=== PATIENT | male | born 1940 | race Caucasian/White ===

== ENCOUNTER 2017-06-11 12:21 | Emergency (ER) | payer MEDICARE ==
[~2017-06-11] VITALS: Ht 182.9 cm; Wt 95.0 kg
[~2017-06-11 12:21] MED LIST: CYAN1000P IM; DICL1GEL TOP; DOXY100T PO; GLIM1TAB PO; LEVO.125 PO; LEXA10TA PO; PENT500C2 PO; POTA-243 PO; PRED5 PO; PROT40TA PO; ROSU10 PO; STAR120T PO; TOPR25TA2 PO; WARF-60 PO
[2017-06-11 12:22] VITALS: BP 144/67; PULSE 109; RESP 18; TEMP 98.8; O2SAT 94
[2017-06-11] MEDS ORDERED: SODIUM CHLOR 0.9% 1000 ML INJ 1,000 ML IV SCH (12:44)
[2017-06-11] MEDS ORDERED: MORPHINE SULFATE 4 MG/ML INJ IV PUSH ONE (12:45)
[2017-06-11] MEDS ORDERED: ONDANSETRON HCL 4 MG/2 ML VIAL IVP ONE (12:45)
[2017-06-11] MEDS ORDERED: LIDOCAINE HCL 1% 30 ML VIAL INFIL ONE (12:45)
[2017-06-11] MEDS ORDERED: SODIUM CHLORIDE 0.9% FLUSH 10 ML FLUSH IV FLUSH PRN (12:45)
[2017-06-11] MEDS ORDERED: LIDOCAINE HCL 1% 20 ML VIAL INFIL ONE (13:00)
[2017-06-11] MEDS ORDERED: LIDOCAINE HCL 1% PF 30 ML VIAL INFIL ONE (13:00)
[2017-06-11 13:10] VITALS: BP 148/70; PULSE 100; RESP 16; O2SAT 91
[2017-06-11 13:24] VITALS: BP 141/70; PULSE 94; RESP 16; TEMP 100.6; O2SAT 96
[2017-06-11 13:41] LABS: AUTOMATED NEUTROPHIL # 9.5 TH/MM3 (1.8-7.7); BASOPHIL % 0.2 % (0.0-2.0); EOSINOPHIL # 0.1 TH/MM3 (0-0.4); HEMATOCRIT 32.2 % (39.0-51.0); HEMOGLOBIN 10.6 GM/DL (13.0-17.0); LYMPH % 5.4 % (9.0-44.0); LYMPHOCYTE # 0.6 TH/MM3 (1.0-4.8); MEAN CELL VOLUME 84.1 FL (80.0-100.0); MEAN CORPUSCULAR HEMOGLOBIN 27.9 PG (27.0-34.0); MEAN CORPUSCULAR HGB CONC 33.1 % (32.0-36.0); MEAN PLATELET VOLUME 8.6 FL (7.0-11.0); MONO % 6.9 % (0.0-8.0); MONOCYTE # 0.8 TH/MM3 (0-0.9); NEUT % 86.5 % (16.0-70.0); PLATELET COUNT 222 TH/MM3 (150-450); RED BLOOD COUNT 3.82 MIL/MM3 (4.50-5.90); RED CELL DISTRIBUTION WIDTH 14.1 % (11.6-17.2)
[2017-06-11 13:43] LABS: BICARBONATE 25.5 MEQ/L (21.0-32.0); INTERNATIONAL NORMALIZED RATIO 2.5 RATIO; PROTHROMBIN TIME - PATIENT 25.6 SEC (9.8-11.6)
[2017-06-11] MEDS ORDERED: AMPICILLIN-SULBACTAM INJ 3 GM in SODIUM CHLORIDE 0.9% INJ 100 ML IV ONE (14:00)
[2017-06-11] MEDS ORDERED: COUM6TAB PO (14:06)
[2017-06-11] MEDS ORDERED: LEXA20TA PO (14:06)
[2017-06-11] MEDS ORDERED: ROSU10 PO (14:06)
[2017-06-11] MEDS ORDERED: GLIM2TAB PO (14:06)
[2017-06-11] MEDS ORDERED: KLOR20PO PO (14:06)
[2017-06-11] MEDS ORDERED: LEVO.125 PO (14:06)
[2017-06-11] MEDS ORDERED: PANT40TA3 PO (14:06)
[2017-06-11] MEDS ORDERED: NATE120T PO (14:06)
[2017-06-11] MEDS ORDERED: COZA25TA PO (14:06)
[2017-06-11] MEDS ORDERED: PRED5TAB PO (14:06)
[2017-06-11] MEDS ORDERED: PENT500C2 PO (14:06)
[2017-06-11 14:17] VITALS: BP 133/74; PULSE 102; RESP 16; O2SAT 98
--- NOTE | 2017-06-11 14:52 | PD ---
HPI . Weakness Chief Complaint: Fall Time Seen by Provider: 12:39 Travel History International Travel<30 days: No Contact w/Intl Traveler<30days: No Traveled to known affect area: No History of Present Illness HPI This patient comes in with a chief complaint of progressive weakness. This is been ongoing for several months. His states that he has fallen twice this past week. He is been no associated injury. In addition, she states that he has had hesitancy of urination, possible blood in his urine and foul smelling urine. Lastly, he has an abscess in his perineal area. His symptoms have been continuous and progressive. There have been no noted modifying factors. Symptoms are moderate. PFSH Past Medical History Hx Anticoagulant Therapy: Yes (COUMADIN) Autoimmune Disease: Yes (CROHNS) Anxiety: No Depression: No Heart Rhythm Problems: Yes Cardiac Catheterization: Yes High Cholesterol: Yes Diabetes: Yes Patient Takes Glucophage: No Diminished Hearing: Yes Deep Vein Thrombosis: Yes (RLE) GERD: Yes Gout: Yes Hypertension: Yes Kidney Stones: Yes Medical other: Yes (GYNECOMASTIA - RIGHT) Neurologic: No Psychiatric: No Immunizations Current: No Thyroid Disease: Yes Tetanus Vaccination: > 5 Years Influenza Vaccination: Yes PNEUMOCCOCAL Vaccine (Year): 1 Past Surgical History Abdominal Surgery: Yes (BOWEL RESECTION/VENTRAL HERNIA REPAIR/DUODENAL STRICTUROPLASTY (FAILED)) Appendectomy: Yes Cardiac Surgery: Yes (STENT X1 12/2008) Coronary Stent: Yes Other Surgery: Yes (MESH CAGE IN BACK-5 HERNIATED DISCS) Social History Alcohol Use: Yes (OCC) Tobacco Use: No (QUIT 01/23) Substance Use: No Allergies-Medications (Allergen,Severity, Reaction): Coded Allergies: Iodinated Contrast- Oral and IV Dye (Unverified Adverse Reaction, Severe, "PASSED OUT", 06/11/17) levofloxacin (Verified Adverse Reaction, Intermediate, Diarrhea, 06/11/17) Reported Meds & Prescriptions Reported Meds & Active Scripts Active Reported Cozaar (Losartan Potassium) 25 Mg Tab 25 Mg PO DAILY Pantoprazole (Pantoprazole Sodium) 40 Mg Tab 40 Mg PO BID Lexapro (Escitalopram Oxalate) 20 Mg Tab 20 Mg PO DAILY Prednisone 5 Mg Tab 5 Mg PO DAILY Coumadin (Warfarin) 6 Mg Tab 6 Mg PO DAILY Synthroid (Levothyroxine Sodium) 125 Mcg Tab 125 Mcg PO DAILY Klor-Con Powder (Potassium Chloride) 20 Meq Powderpack 20 Meq PO DAILY Crestor (Rosuvastatin Calcium) 10 Mg Tab 10 Mg PO DAILY Pentasa (Mesalamine) 500 Mg Caper 500 Mg PO BID Glimepiride 2 Mg Tab 2 Mg PO DAILY Take with breakfast or first main meal Nateglinide 120 Mg Tab 120 Mg PO TID Review of Systems Except as stated in HPI: all other systems reviewed are Neg General / Constitutional: No: Fever, Chills Gastrointestinal: No: Nausea, Vomiting, Diarrhea Genitourinary: Positive: Hematuria, Hesitancy Skin: Positive Other (SKIN: There is an indurated area in the [-] which measures about [-] cm in diameter. It is fluctuant but there is no pointing or drainage. There is a zone of inflammation around it but no lymphangitis.) Neurologic: Positive: Weakness Physical Exam Narrative GENERAL: Awake and alert and in no acute distress. SKIN: warm/dry. HEAD: Normocephalic. Atraumatic. EYES: Pupils equal and round. No scleral icterus. No injection or drainage. ENT: No nasal bleeding or discharge. Mucous membranes pink and moist. NECK: Trachea midline. Full range of motion without pain.. CARDIOVASCULAR: Regular rate and rhythm. RESPIRATORY: No accessory muscle use. Clear to auscultation. Breath sounds equal bilaterally. GASTROINTESTINAL: Abdomen soft. Nontender. Bowel sounds present. Nondistended. : He has an abscess in the perineum between the anus and the scrotal sac on the right. MUSCULOSKELETAL: No obvious deformities. NEUROLOGICAL: Awake and alert. No obvious cranial nerve deficits. Motor grossly within normal limits. Normal speech. PSYCHIATRIC: Appropriate mood and affect; insight and judgment normal. Data Data Last Documented VS Vital Signs Date Time Temp Pulse Resp B/P (MAP) Pulse Ox O2 Delivery O2 Flow Rate FiO2 06/11/17 16:20 99.1 76 16 114/50 (71) 98 Nasal Cannula 2.00 Orders Orders Basic Metabolic Panel (Bmp) (06/11/17 12:44) Complete Blood Count With Diff (06/11/17 12:44) Lactic Acid (06/11/17 12:44) Urinalysis - C+S If Indicated (06/11/17 12:44) Iv Access Insert/Monitor (06/11/17 12:44) Morphine Inj (Morphine Inj) (06/11/17 12:45) Ondansetron Inj (Zofran Inj) (06/11/17 12:45) Sodium Chlor 0.9% 1000 Ml Inj (Ns 1000 M (06/11/17 12:44) Sodium Chloride 0.9% Flush (Ns Flush) (06/11/17 12:45) Lidocaine 1% Inj (Xylocaine 1% Inj) (06/11/17 12:45) Lidocaine Pf 1% Inj (Xylocaine-Mpf 1% In (06/11/17 13:00) Prothrombin Time / Inr (Pt) (06/11/17 12:55) Lidocaine 1% Inj (Xylocaine 1% Inj) (06/11/17 13:00) Ampicillin-Sulbactam Inj (Unasyn Inj) (06/11/17 14:00) Wound Culture And Gram Stain (06/11/17 14:28) Sodium Chlor 0.9% 1000 Ml Inj (Ns 1000 M (06/11/17 15:00) Sodium Chlor 0.9% 1000 Ml Inj (Ns 1000 M (06/11/17 16:00) Labs Laboratory Tests Test 06/11/17 12:05 06/11/17 16:00 White Blood Count 11.0 TH/MM3 Red Blood Count 3.82 MIL/MM3 Hemoglobin 10.6 GM/DL Hematocrit 32.2 % Mean Corpuscular Volume 84.1 FL Mean Corpuscular Hemoglobin 27.9 PG Mean Corpuscular Hemoglobin Concent 33.1 % Red Cell Distribution Width 14.1 % Platelet Count 222 TH/MM3 Mean Platelet Volume 8.6 FL Neutrophils (%) (Auto) 86.5 % Lymphocytes (%) (Auto) 5.4 % Monocytes (%) (Auto) 6.9 % Eosinophils (%) (Auto) 1.0 % Basophils (%) (Auto) 0.2 % Neutrophils # (Auto) 9.5 TH/MM3 Lymphocytes # (Auto) 0.6 TH/MM3 Monocytes # (Auto) 0.8 TH/MM3 Eosinophils # (Auto) 0.1 TH/MM3 Basophils # (Auto) 0.0 TH/MM3 CBC Comment DIFF FINAL Differential Comment Prothrombin Time 25.6 SEC Prothromb Time International Ratio 2.5 RATIO Blood Urea Nitrogen 14 MG/DL Creatinine 1.00 MG/DL Random Glucose 227 MG/DL Calcium Level 8.0 MG/DL Sodium Level 135 MEQ/L Potassium Level 3.5 MEQ/L Chloride Level 99 MEQ/L Carbon Dioxide Level 25.5 MEQ/L Anion Gap 11 MEQ/L Estimat Glomerular Filtration Rate 72 ML/MIN Lactic Acid Level 2.5 mmol/L Urine Collection Type CLEAN CATCH Urine Color YELLOW Urine Turbidity CLEAR Urine pH 5.5 Urine Specific [place] 1.029 Urine Protein 30 mg/dL Urine Glucose (UA) NEG mg/dL Urine Ketones NEG mg/dL Urine Occult Blood TRACE Urine Nitrite NEG Urine Bilirubin NEG Urine Leukocyte Esterase NEG Urine RBC 0-3 /hpf Urine WBC 0-2 /hpf Urine Squamous Epithelial Cells 0-5 /hpf Microscopic Urinalysis Comment CULT NOT INDICATED Urine Collection Time 16:00 [facility] Medical Decision Making Medical Screen Exam Complete: Yes Emergency Medical Condition: Yes Medical Record Reviewed: Yes (medical history is significant for DM, CAD, HTN, HL, CHF, EF, VT) Differential Diagnosis Differential diagnosis of weakness includes but is not limited to infection, CVA , electrolyte disturbance, renal failure, hypoglycemia, UTI, ACS, acute blood loss Narrative Course This patient presents with a chief complaint of progressive weakness over the last several months. He also has an abscess in his perineum and possibly has a urinary tract infection. CBC & BMP Diagram 06/11/17 12:05 Calcium Level 8.0 L He does not meet SIRS criteria. He has had 2 L of fluid and has not yet urinated. I have ordered a third liter. UA neg for infection. This patient is stable for discharge. He will be discharged on Augmentin per the recommendation of up-to-date. He is asked to return here in 2 days for packing removal. Procedures Procedure Narrative INCISION AND DRAINAGE OF ABSCESS: The area was prepped with Betadine. A subcutaneous wheal of 1 % Xylocaine with a total number 5 mL was used to anesthetize the area properly. A number 11 scalpel was used to make a 1 -cm incision across the area of the abscess. The abscess was drained, complex loculations were broken down. Cultures were obtained. Quarter inch iodoform packing was placed in the wound. Sterile dressing applied. Patient advised to have packing removed in two days. Sepsis Criteria SIRS Criteria (2 or more): Heart rate over 90 Diagnosis Primary Impression: Perineal abscess Additional Impression: Weakness Patient Instructions: Abscess Incision and Drainage (DC), General Instructions Med/Other Pt SpecificInfo: Prescription(s) given Scripts Amoxicillin-Clavulanate (Augmentin) 875-125 Mg Tab 1 TAB PO BID for Infection, #10 TAB 0 Refills Prov: Phoebe Lea MD 06/11/17 Disposition: 01 DISCHARGE HOME Condition: Stable Phoebe Lea MD Jun 11, 2017 14:52
[2017-06-11] MEDS ORDERED: SODIUM CHLOR 0.9% 1000 ML INJ 1,000 ML IV ONE ×2 (15:00→16:00)
[2017-06-11 16:20] VITALS: BP 114/50; PULSE 76; RESP 16; TEMP 99.1; O2SAT 98
[2017-06-11 17:07] LABS: BILIRUBIN, URINE NEG (NEG); BLOOD, URINE TRACE (NEG); GLUCOSE,URINE NEG (NEG); KETONE, URINE NEG (NEG); NITRITE,URINE NEG (NEG); PH, URINE 5.5 (5.0-8.5); URINE LEUKOCYTE ESTERASE NEG (NEG)
[2017-06-11 17:16] LABS: RBC, URINE 0-3 /hpf (0-3); SQUAMOUS EPITHELIAL CELL URINE 0-5 /hpf (0-5); URINE COLOR YELLOW (YELLW/STRAW); WBC, URINE 0-2 /hpf (0-5)
[2017-06-11] MEDS ORDERED: AUGM875T3 PO (17:32)
[2017-06-11 18:16] VITALS: BP 133/68; PULSE 88; RESP 16; O2SAT 95
== END 2017-06-11 18:00 | disposition home or self-care (01) ==
LOC: PHED 12:21
DX: L02.215 Cutaneous abscess of perineum (principal); R53.1 Weakness; R39.11 Hesitancy of micturition; E11.9 Type 2 diabetes mellitus without complications; M10.9 Gout, unspecified; I10 Essential (primary) hypertension; K21.9 Gastro-esophageal reflux disease without esophagitis; Z87.19 Personal history of other diseases of the digestive system; Z86.718 Personal history of other venous thrombosis and embolism
CPT/HCPCS: 10061; 80048; 81001; 83605; 85025; 85610; 86403; 87070; 96361; 96365; 96375; 99284; J0295; J2270; J2405; J7030; 87205

== ENCOUNTER 2017-06-13 14:35 | Emergency (ER) | payer MEDICARE ==
[~2017-06-13] VITALS: Ht 182.9 cm; Wt 98.0 kg
[~2017-06-13 14:35] MED LIST changes: +AUGM875T3 PO; +COUM6TAB PO; +COZA25TA PO; -CYAN1000P IM; -DICL1GEL TOP; -DOXY100T PO; -GLIM1TAB PO; +GLIM2TAB PO; +KLOR20PO PO; -LEXA10TA PO; +LEXA20TA PO; +NATE120T PO; +PANT40TA3 PO; -POTA-243 PO; -PRED5 PO; +PRED5TAB PO; -PROT40TA PO; -STAR120T PO; -TOPR25TA2 PO; -WARF-60 PO
[2017-06-13 15:07] VITALS: BP 132/68; PULSE 80; RESP 17; TEMP 97.6; O2SAT 95
--- NOTE | 2017-06-13 16:09 | PD ---
HPI Chief Complaint: Wound/Suture/Staple Re-Check Time Seen by Provider: 15:46 Travel History International Travel<30 days: No Contact w/Intl Traveler<30days: No Traveled to known affect area: No History of Present Illness HPI 77-year-old male that presents to the ED for evaluation of recheck of wound. Patient reports that he was seen here 2 days ago had an abscess drained. Patient had packing in place and has been having drainage from the wound. Per who is taking care of the patient packing might have felt today. His been continued to have wound care as well as drainage from the wound. No other medical issues. Compliant with medications. Here for recheck as they were told to get a recheck in 2 days. PFSH Past Medical History Hx Anticoagulant Therapy: Yes Autoimmune Disease: Yes (CROHNS) Anxiety: No Depression: No Heart Rhythm Problems: Yes Cardiac Catheterization: Yes Cardiovascular Problems: Yes High Cholesterol: Yes Diabetes: Yes Patient Takes Glucophage: No Diminished Hearing: Yes Deep Vein Thrombosis: Yes (RLE) GERD: Yes Gout: Yes Hypertension: Yes Kidney Stones: Yes Neurologic: No Psychiatric: No Immunizations Current: No Thyroid Disease: Yes PNEUMOCCOCAL Vaccine (Year): 1 Past Surgical History Abdominal Surgery: Yes (BOWEL RESECTION/VENTRAL HERNIA REPAIR/DUODENAL STRICTUROPLASTY (FAILED)) Appendectomy: Yes Cardiac Surgery: Yes (STENT X1 12/2008) Coronary Stent: Yes Other Surgery: Yes (MESH CAGE IN BACK-5 HERNIATED DISCS) Social History Alcohol Use: Yes (OCC) Tobacco Use: No (QUIT 01/23) Substance Use: No Allergies-Medications (Allergen,Severity, Reaction): Coded Allergies: Iodinated Contrast- Oral and IV Dye (Unverified Adverse Reaction, Severe, "PASSED OUT", 06/13/17) levofloxacin (Verified Adverse Reaction, Intermediate, Diarrhea, 06/13/17) Reported Meds & Prescriptions Reported Meds & Active Scripts Active Augmentin (Amoxicillin-Clavulanate) 875-125 Mg Tab 1 Tab PO BID Reported Cozaar (Losartan Potassium) 25 Mg Tab 25 Mg PO DAILY Pantoprazole (Pantoprazole Sodium) 40 Mg Tab 40 Mg PO BID Lexapro (Escitalopram Oxalate) 20 Mg Tab 20 Mg PO DAILY Prednisone 5 Mg Tab 5 Mg PO DAILY Coumadin (Warfarin) 6 Mg Tab 6 Mg PO DAILY Synthroid (Levothyroxine Sodium) 125 Mcg Tab 125 Mcg PO DAILY Klor-Con Powder (Potassium Chloride) 20 Meq Powderpack 20 Meq PO DAILY Crestor (Rosuvastatin Calcium) 10 Mg Tab 10 Mg PO DAILY Pentasa (Mesalamine) 500 Mg Caper 500 Mg PO BID Glimepiride 2 Mg Tab 2 Mg PO DAILY Take with breakfast or first main meal Nateglinide 120 Mg Tab 120 Mg PO TID Review of Systems Except as stated in HPI: all other systems reviewed are Neg Physical Exam Narrative GENERAL: SKIN: Warm and dry. Patient has a draining abscess on his right groin. Seen with female nurse present. Patient does have drainage coming from the wound. Packing already appears to have fallen. Wound still draining. No new abscess noted. HEAD: Atraumatic. Normocephalic. EYES: Pupils equal and round. No scleral icterus. No injection or drainage. ENT: No nasal bleeding or discharge. Mucous membranes pink and moist. NECK: Trachea midline. No JVD. CARDIOVASCULAR: Regular rate and rhythm. RESPIRATORY: No accessory muscle use. Clear to auscultation. Breath sounds equal bilaterally. GASTROINTESTINAL: Abdomen soft, non-tender, nondistended. Hepatic and splenic margins not palpable. MUSCULOSKELETAL: Extremities without clubbing, cyanosis, or edema. No obvious deformities. NEUROLOGICAL: Awake and alert. No obvious cranial nerve deficits. Motor grossly within normal limits. Five out of 5 muscle strength in the arms and legs. Normal speech. PSYCHIATRIC: Appropriate mood and affect; insight and judgment normal. Data Data Last Documented VS Vital Signs Date Time Temp Pulse Resp B/P (MAP) Pulse Ox O2 Delivery O2 Flow Rate FiO2 06/13/17 15:07 97.6 80 17 132/68 (89) 95 Orders Orders Ed Discharge Order (06/13/17 16:05) MDM Medical Decision Making Medical Screen Exam Complete: Yes Emergency Medical Condition: Yes Medical Record Reviewed: Yes Differential Diagnosis Draining abscess versus wound check versus wound recheck Narrative Course 77-year-old male that presents to the ED for evaluation of draining abscess. Patient was properly examined and was found to have signs and symptoms consistent with draining abscess. No sign of acute medical distress. Packing already removed on its own. At this time I recommend wound care and continue taking antibiotic. I did review the medical records and patient did not improve any organism alert and normal jagjit. At this time likely this will heal by secondary intention after the pus comes out. Patient understands that if anything worsens she is to come back. Follow with PCP. See ED worsening symptoms. Diagnosis Primary Impression: Abscess Patient Instructions: General Instructions Additional Instructions: Follow-up with PCP. See ED worsening symptoms. Continue taking medications as prescribed by your doctor. Med/Other Pt SpecificInfo: No Change to Meds Disposition: 01 DISCHARGE HOME Condition: Stable Prasanth Valdes Jun 13, 2017 16:09
== END 2017-06-13 16:21 | disposition home or self-care (01) ==
LOC: PHEFT 14:35
DX: Z48.00 Encounter for change or removal of nonsurgical wound dressing (principal)
CPT/HCPCS: 99281

== ENCOUNTER 2017-06-18 11:00 | Emergency (ER) | payer MEDICARE ==
[~2017-06-18] VITALS: Ht 182.9 cm; Wt 94.2 kg
[2017-06-18 11:17] VITALS: BP 135/65; PULSE 99; RESP 16; TEMP 98.5; O2SAT 96
[2017-06-18 11:43] LABS: AUTOMATED NEUTROPHIL # 6.4 TH/MM3 (1.8-7.7); BASOPHIL % 0.5 % (0.0-2.0); EOSINOPHIL # 0.1 TH/MM3 (0-0.4); EOSINOPHIL % 0.8 % (0.0-4.0); HEMATOCRIT 33.2 % (39.0-51.0); LYMPHOCYTE # 0.9 TH/MM3 (1.0-4.8); MEAN CELL VOLUME 83.1 FL (80.0-100.0); MEAN CORPUSCULAR HEMOGLOBIN 27.6 PG (27.0-34.0); MEAN CORPUSCULAR HGB CONC 33.2 % (32.0-36.0); MEAN PLATELET VOLUME 7.6 FL (7.0-11.0); MONO % 5.8 % (0.0-8.0); MONOCYTE # 0.5 TH/MM3 (0-0.9); NEUT % 80.9 % (16.0-70.0); PLATELET COUNT 391 TH/MM3 (150-450); RED CELL DISTRIBUTION WIDTH 14.9 % (11.6-17.2); WHITE BLOOD COUNT 7.9 TH/MM3 (4.0-11.0)
[2017-06-18 11:57] LABS: CALCIUM 8.9 MG/DL (8.5-10.1)
[2017-06-18 11:58] LABS: BICARBONATE 26.8 MEQ/L (21.0-32.0)
[2017-06-18 12:01] LABS: INTERNATIONAL NORMALIZED RATIO 2.8 RATIO; PROTHROMBIN TIME - PATIENT 27.9 SEC (9.8-11.6)
[2017-06-18] MEDS ORDERED: NYST15T TOPICAL (12:48)
--- NOTE | 2017-06-18 12:48 | PD ---
HPI Chief Complaint: Abnormal Results Time Seen by Provider: 11:04 Travel History International Travel<30 days: No Contact w/Intl Traveler<30days: No Traveled to known affect area: No History of Present Illness HPI Patient is a 77-year-old male presents emergency department for evaluation of increased INR. Patient recently had antibiotics prescribed for a perineal abscess. This is drained over week ago and the patient is finishing antibiotics. He had his INR tested and it was 4.8 at home and repeat was still 4.8. He called his physician [facility] who advised him to go to the nearest emergency department for evaluation. Patient does not report any active bleeding, no blood in the stool, no cough no congestion. His only other complaint is of a small rash in his groin area not associated with the previous perineal abscess. Otherwise feels pretty well. No chest pain or shortness breath no abdominal pain no nausea vomiting. Symptoms moderate, for the past few days, context and associated signs symptoms as above. PFSH Past Medical History Hx Anticoagulant Therapy: Yes (coumadin) Autoimmune Disease: Yes (CROHNS) Anxiety: No Depression: No Heart Rhythm Problems: Yes Cardiac Catheterization: Yes Cardiovascular Problems: Yes (htn on meds , a-fib, loop recorder) High Cholesterol: Yes Diabetes: Yes Diminished Hearing: Yes Deep Vein Thrombosis: Yes (RLE) GERD: Yes Gout: Yes Hypertension: Yes Kidney Stones: Yes Neurologic: No Psychiatric: No Immunizations Current: No Thyroid Disease: Yes PNEUMOCCOCAL Vaccine (Year): 1 Past Surgical History Abdominal Surgery: Yes (BOWEL RESECTION/VENTRAL HERNIA REPAIR/DUODENAL STRICTUROPLASTY (FAILED)) Appendectomy: Yes Cardiac Surgery: Yes (STENT X1 12/2008) Coronary Stent: Yes Other Surgery: Yes (MESH CAGE IN BACK-5 HERNIATED DISCS) Social History Alcohol Use: Yes (OCC) Tobacco Use: No (QUIT 01/23) Substance Use: No Allergies-Medications (Allergen,Severity, Reaction): Coded Allergies: Iodinated Contrast- Oral and IV Dye (Unverified Adverse Reaction, Severe, "PASSED OUT", 06/18/17) levofloxacin (Verified Adverse Reaction, Intermediate, Diarrhea, 06/18/17) Reported Meds & Prescriptions Reported Meds & Active Scripts Active Nystatin Topical (Nystatin) 100,000 unit/gm Cream 1 Applic TOPICAL BID Augmentin (Amoxicillin-Clavulanate) 875-125 Mg Tab 1 Tab PO BID Reported Cozaar (Losartan Potassium) 25 Mg Tab 25 Mg PO DAILY Pantoprazole (Pantoprazole Sodium) 40 Mg Tab 40 Mg PO BID Lexapro (Escitalopram Oxalate) 20 Mg Tab 20 Mg PO DAILY Prednisone 5 Mg Tab 5 Mg PO DAILY Coumadin (Warfarin) 6 Mg Tab 6 Mg PO DAILY Synthroid (Levothyroxine Sodium) 125 Mcg Tab 125 Mcg PO DAILY Klor-Con Powder (Potassium Chloride) 20 Meq Powderpack 20 Meq PO DAILY Crestor (Rosuvastatin Calcium) 10 Mg Tab 10 Mg PO DAILY Pentasa (Mesalamine) 500 Mg Caper 500 Mg PO BID Glimepiride 2 Mg Tab 2 Mg PO DAILY Take with breakfast or first main meal Nateglinide 120 Mg Tab 120 Mg PO TID Review of Systems Except as stated in HPI: all other systems reviewed are Neg Physical Exam Narrative GENERAL: Well-developed well-nourished no obvious distress SKIN: Focused skin assessment warm/dry. There are some satellite lesions in the groin and genital area consistent with tinea cruris. There is a small skin wesley on the left side of the perineum which is healing well, no drainage no surrounding induration no surrounding erythema peer HEAD: Atraumatic. Normocephalic. EYES: Pupils equal and round. No scleral icterus. No injection or drainage. ENT: No nasal bleeding or discharge. Mucous membranes pink and moist. NECK: Trachea midline. No JVD. CARDIOVASCULAR: Regular rate and rhythm. No murmur appreciated. RESPIRATORY: No accessory muscle use. Clear to auscultation. Breath sounds equal bilaterally. GASTROINTESTINAL: Abdomen soft, non-tender, nondistended. Hepatic and splenic margins not palpable. MUSCULOSKELETAL: No obvious deformities. No clubbing. No cyanosis. No edema. NEUROLOGICAL: Awake and alert. No obvious cranial nerve deficits. Motor grossly within normal limits. Normal speech. PSYCHIATRIC: Appropriate mood and affect; insight and judgment normal. Data Data Last Documented VS Vital Signs Date Time Temp Pulse Resp B/P (MAP) Pulse Ox O2 Delivery O2 Flow Rate FiO2 06/18/17 11:17 98.5 99 16 135/65 (88) 96 Orders Orders Complete Blood Count With Diff (06/18/17 11:05) Basic Metabolic Panel (Bmp) (06/18/17 11:05) Act Partial Throm Time (Ptt) (06/18/17 11:05) Prothrombin Time / Inr (Pt) (06/18/17 11:05) Ed Discharge Order (06/18/17 12:48) Labs Laboratory Tests Test 06/18/17 11:25 White Blood Count 7.9 TH/MM3 Red Blood Count 4.00 MIL/MM3 Hemoglobin 11.0 GM/DL Hematocrit 33.2 % Mean Corpuscular Volume 83.1 FL Mean Corpuscular Hemoglobin 27.6 PG Mean Corpuscular Hemoglobin Concent 33.2 % Red Cell Distribution Width 14.9 % Platelet Count 391 TH/MM3 Mean Platelet Volume 7.6 FL Neutrophils (%) (Auto) 80.9 % Lymphocytes (%) (Auto) 12.0 % Monocytes (%) (Auto) 5.8 % Eosinophils (%) (Auto) 0.8 % Basophils (%) (Auto) 0.5 % Neutrophils # (Auto) 6.4 TH/MM3 Lymphocytes # (Auto) 0.9 TH/MM3 Monocytes # (Auto) 0.5 TH/MM3 Eosinophils # (Auto) 0.1 TH/MM3 Basophils # (Auto) 0.0 TH/MM3 CBC Comment DIFF FINAL Differential Comment Prothrombin Time 27.9 SEC Prothromb Time International Ratio 2.8 RATIO Activated Partial Thromboplast Time 45.6 SEC Blood Urea Nitrogen 9 MG/DL Creatinine 1.00 MG/DL Random Glucose 230 MG/DL Calcium Level 8.9 MG/DL Sodium Level 137 MEQ/L Potassium Level 3.8 MEQ/L Chloride Level 102 MEQ/L Carbon Dioxide Level 26.8 MEQ/L Anion Gap 8 MEQ/L Estimat Glomerular Filtration Rate 72 ML/MIN [facility] Medical Decision Making Medical Screen Exam Complete: Yes Emergency Medical Condition: Yes Differential Diagnosis Elevated INR, medication reaction, life-threatening bleeding has been excluded clinically Narrative Course Patient room to the emergency department, he appears well and in no obvious distress, no petechia and no purpura, no signs of active bleeding. It appears as though the Coumadin is interacted with the antibiotic and has increased his INR temporarily as today's INR is 2.8. Remainder of his CBC and BMP are normal. At this time the patient is reassured, there is no indication for vitamin K's finishes antibiotics and the infection appears to be healing well. Will place on nystatin cream, discussed return to dosing regimen tomorrow evening. Discussed return to ED criteria and follow-up with his primary care physician. Stable for discharge Diagnosis Primary Impression: Tinea cruris Additional Impression: Elevated INR Additional Instructions: Resume Coumadin at previously prescribed regimen on monday (tomorrow). Call your regular physician for further instruction. Your INR is 2.8 today. Med/Other Pt SpecificInfo: Prescription(s) given Scripts Nystatin Topical (Nystatin Topical) 100,000 unit/gm Cream 1 APPLIC TOPICAL BID for Infection, #15 GM 0 Refills Prov: Reynaldo Muse MD 06/18/17 Disposition: 01 DISCHARGE HOME Condition: Stable Reynaldo Muse MD Jun 18, 2017 12:48
== END 2017-06-18 13:16 | disposition home or self-care (01) ==
LOC: PHED 11:00 → PHEFT 13:16
DX: B35.6 Tinea cruris (principal); R79.1 Abnormal coagulation profile; K50.90 Crohn's disease, unspecified, without complications; I10 Essential (primary) hypertension; I48.91 Unspecified atrial fibrillation; E78.00 Pure hypercholesterolemia, unspecified; E11.9 Type 2 diabetes mellitus without complications; Z79.01 Long term (current) use of anticoagulants; Z79.84 Long term (current) use of oral hypoglycemic drugs; Z86.718 Personal history of other venous thrombosis and embolism
CPT/HCPCS: 80048; 85025; 85610; 85730; 99283

== ENCOUNTER → 2017-06-20 | Outpatient (CLI) | payer MEDICARE ==
[~2017-06-20] MED LIST changes: +NORC5TAB PO; +NYST15T TOPICAL
[2017-06-20 18:20] LABS: BICARBONATE 25.8 MEQ/L (21.0-32.0); CALCIUM 8.6 MG/DL (8.5-10.1); CREATININE 1.26 MG/DL (0.60-1.30)
[2017-06-20 18:36] LABS: DIGOXIN 0.1 NG/ML (0.8-2.0)
== END ==
LOC: PLAB 13:33
PROVIDERS: ATTEND Internal Medicine Cardiovascular Disease
DX: I48.91 Unspecified atrial fibrillation (principal); R00.2 Palpitations; I82.409 Acute embolism and thrombosis of unspecified deep veins of unspecified lower extremity; R06.02 Shortness of breath; R42 Dizziness and giddiness; E78.5 Hyperlipidemia, unspecified
CPT/HCPCS: 36415; 80048; 80162

== ENCOUNTER 2017-06-21 13:10 | Emergency (ER) | payer MEDICARE ==
[~2017-06-21 13:10] MED LIST changes: -NORC5TAB PO
[2017-06-21 13:15] VITALS: BP 129/72; PULSE 90; RESP 16; TEMP 98.3; O2SAT 96
--- NOTE | 2017-06-21 14:16 | PD ---
HPI Chief Complaint: Fall Time Seen by Provider: 13:27 Travel History International Travel<30 days: No Contact w/Intl Traveler<30days: No Traveled to known affect area: No History of Present Illness HPI 77-year-old male here with neck and back pain after he had a trip and fall approximately one week ago. He denies head injury or loss of consciousness. Patient is anticoagulated on Coumadin. He reports the pain gradually increased over the last several days. Pain is worse with movement of the neck and palpation of the upper back. Slightly relieved with rest. He denies paresthesia or weakness in the extremities. No headache or visual changes. No nausea or vomiting. No chest pain or shortness of breath. PFSH Past Medical History Hx Anticoagulant Therapy: Yes Autoimmune Disease: Yes (CROHNS) Anxiety: No Depression: No Heart Rhythm Problems: Yes Cardiac Catheterization: Yes Cardiovascular Problems: Yes (htn on meds , a-fib, loop recorder) High Cholesterol: Yes Diabetes: Yes Patient Takes Glucophage: No Diminished Hearing: Yes Deep Vein Thrombosis: Yes (RLE) GERD: Yes Gout: Yes Hypertension: Yes Kidney Stones: Yes Neurologic: No Psychiatric: No Immunizations Current: No Thyroid Disease: Yes PNEUMOCCOCAL Vaccine (Year): 1 ?: Not Past Surgical History Abdominal Surgery: Yes (BOWEL RESECTION/VENTRAL HERNIA REPAIR/DUODENAL STRICTUROPLASTY (FAILED)) Appendectomy: Yes Cardiac Surgery: Yes (STENT X1 12/2008) Coronary Stent: Yes Other Surgery: Yes (MESH CAGE IN BACK-5 HERNIATED DISCS) Social History Alcohol Use: Yes (OCC) Tobacco Use: No (QUIT 01/23) Substance Use: No Allergies-Medications (Allergen,Severity, Reaction): Coded Allergies: Iodinated Contrast- Oral and IV Dye (Verified Adverse Reaction, Severe, "PASSED OUT", 06/21/17) levofloxacin (Verified Adverse Reaction, Intermediate, Diarrhea, 06/21/17) Reported Meds & Prescriptions Reported Meds & Active Scripts Active Nystatin Topical (Nystatin) 100,000 unit/gm Cream 1 Applic TOPICAL BID Augmentin (Amoxicillin-Clavulanate) 875-125 Mg Tab 1 Tab PO BID Reported Cozaar (Losartan Potassium) 25 Mg Tab 25 Mg PO DAILY Pantoprazole (Pantoprazole Sodium) 40 Mg Tab 40 Mg PO BID Lexapro (Escitalopram Oxalate) 20 Mg Tab 20 Mg PO DAILY Prednisone 5 Mg Tab 5 Mg PO DAILY Coumadin (Warfarin) 6 Mg Tab 6 Mg PO DAILY Synthroid (Levothyroxine Sodium) 125 Mcg Tab 125 Mcg PO DAILY Klor-Con Powder (Potassium Chloride) 20 Meq Powderpack 20 Meq PO DAILY Crestor (Rosuvastatin Calcium) 10 Mg Tab 10 Mg PO DAILY Pentasa (Mesalamine) 500 Mg Caper 500 Mg PO BID Glimepiride 2 Mg Tab 2 Mg PO DAILY Take with breakfast or first main meal Nateglinide 120 Mg Tab 120 Mg PO TID Review of Systems Except as stated in HPI: all other systems reviewed are Neg General / Constitutional: No: Fever Eyes: No: Visual changes HENT: No: Headaches Cardiovascular: No: Chest Pain or Discomfort Respiratory: No: Shortness of Breath Gastrointestinal: No: Abdominal Pain Musculoskeletal: Positive: Pain (neck and upper back pain) Skin: No Rash Physical Exam Narrative GENERAL: Alert and well-appearing 77-year-old male SKIN: Warm and dry. HEAD: Atraumatic. Normocephalic. EYES: Pupils equal and round. EOMs intact. No injection or drainage. ENT: No nasal bleeding or discharge. Mucous membranes pink and moist. NECK: Supple. Trachea midline. Generalized posterior neck pain including the midline spine. No deformity. CARDIOVASCULAR: Regular rate and rhythm. RESPIRATORY: No accessory muscle use. Clear to auscultation. Breath sounds equal bilaterally. GASTROINTESTINAL: Abdomen soft, non-tender, nondistended. MUSCULOSKELETAL: Extremities without clubbing, cyanosis, or edema. No obvious deformities. No bony tenderness. BACK: +TTP cervical and thoracic spine. No CVA tenderness. No rash. NEUROLOGICAL: Awake and alert. No obvious cranial nerve deficits. Motor grossly within normal limits. Five out of 5 muscle strength in the arms and legs. Normal speech. PSYCHIATRIC: Appropriate mood and affect; insight and judgment normal. Data Data Last Documented VS Vital Signs Date Time Temp Pulse Resp B/P (MAP) Pulse Ox O2 Delivery O2 Flow Rate FiO2 06/21/17 13:15 98.3 90 16 129/72 (91) [address] Brain W/O Iv Contrast(Rout) (06/21/17 ) Ct Cerv Spine W/O Contrast (06/21/17 ) Ct Thor Spine W/O Contrast (06/21/17 ) Oxycodone-Acetamin 5-325 Mg (Percocet (06/21/17 15:30) MDM Medical Decision Making Medical Screen Exam Complete: Yes Emergency Medical Condition: Yes Differential Diagnosis Cervical fracture versus cervical strain, thoracic fracture versus thoracic strain, contusion, ICH Narrative Course 77-year-old male who is anticoagulated on Coumadin had a mechanical trip and fall approximately one week ago. He has upper back and neck pain since the event. He has a normal neurologic exam. He has tenderness over the cervical and thoracic region. C-collar was placed. CT brain: Negative CT cervical spine: No fracture or subluxation CT thoracic spine: No fracture Findings were discussed with patient. Incidental findings on CT discussed with patient and he was instructed to follow up with his primary doctor. He and his verbalized understanding and agreed to this. Patient was given Percocet and reports symptom improvement recheck. He is stable and Ready for discharge Diagnosis Primary Impression: Upper back strain Qualified Codes: S29.012A - Strain of muscle and tendon of back wall of thorax , initial encounter Referrals: Primary Care Physician Additional Instructions: Pain medication as directed. Ice and/or heat for comfort. Avoid heavy lifting or strenuous activity. Follow-up with her primary doctor. Scripts Hydrocodone-Acetaminophen ([place]) 5 Mg-325 Mg Tab 1 TAB PO Q6H Y for PAIN, #14 TAB 0 Refills Prov: Prema Thomas 06/21/17 Disposition: 01 DISCHARGE HOME Condition: Stable Prema Thomas Jun 21, 2017 14:16
--- NOTE | 2017-06-21 14:16 | RADRPT ---
EXAM DATE/TIME: 06/21/2017 13:48 [facility] COMPARISON: No previous studies available for comparison. INDICATIONS : Trauma. Fall. RADIATION DOSE: 65.39 CTDIvol (mGy) MEDICAL HISTORY : Deep venous thrombosis. Cardiovascular disease Gastroesophageal reflux disease. Diabetes. Hypertensio n. Renal stones. SURGICAL HISTORY : Coronary artery stent. ENCOUNTER: Initial ACUITY: 1 week PAIN SCALE: 0/10 LOCATION: cranial TECHNIQUE: Multiple contiguous axial images were obtained of the head. Using automated exposure control and adj ustment of the mA and/or kV according to patient size, radiation dose was kept as low as reasonably a chievable to obtain optimal diagnostic quality images. DICOM format image data is available electro nically for review and comparison. FINDINGS: CEREBRUM: The ventricles are normal for age. There is mild microvascular ischemic demyelinative change. No niko dence of midline shift, mass lesion, hemorrhage or acute infarction. No extra-axial fluid collection s are seen. POSTERIOR FOSSA: The cerebellum and brainstem are intact. The 4th ventricle is midline. The cerebellopontine angle i s unremarkable. EXTRACRANIAL: The visualized portion of the orbits is intact. SKULL: The calvaria is intact. No evidence of skull fracture. CONCLUSION: 1. No acute intracranial abnormality identified. Evangelist Viveros MD on June 21, 2017 at 14:13 Board Certified Radiologist. This report was verified electronically.
--- NOTE | 2017-06-21 14:51 | RADRPT ---
EXAM DATE/TIME: 06/21/2017 13:53 [facility] COMPARISON: CT BRAIN W/O CONTRAST, June 21, 2017, 13:48. INDICATIONS : Trauma. Fall. Back pain. RADIATION DOSE: 42.85 CTDIvol (mGy) MEDICAL HISTORY : Deep venous thrombosis. Cardiovascular disease Gastroesophageal reflux disease.Hypertension. Diabete s. Renal stones. SURGICAL HISTORY : Coronary artery stent. ENCOUNTER: Initial ACUITY: 1 week PAIN SCALE: 8/10 LOCATION: Thoracic spine. TECHNIQUE: Volumetric scanning of the thoracic spine was performed. Multiplanar reconstructions in the sagittal , coronal and oblique axial planes were performed. Using automated exposure control and adjustment o f the mA and/or kV according to patient size, radiation dose was kept as low as reasonably achievable to obtain optimal diagnostic quality images. DICOM format image data is available electronically f or review and comparison. FINDINGS: Sagittal and coronal reformatted imaging is provided. The sagittal and coronal imaging demonstrates a dvanced degenerative changes throughout the thoracic spine with degenerated disc at all levels. No ac tribe compression fracture is identified. Axial imaging through the disc spaces is provided. These again demonstrate degenerative changes throu ghout the thoracic spine. No significant neural foraminal stenosis or spinal stenosis is evident. Incidental note is made of a 1.8 x 0.7 cm area of pleural thickening in the posterior medial aspect o f the right lower lobe. CONCLUSION: 1. 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 No acute fracture is eviden t. Evangelist Viveros MD on June 21, 2017 at 14:47 Board Certified Radiologist. This report was verified electronically.
--- NOTE | 2017-06-21 15:27 | RADRPT ---
EXAM DATE/TIME: 06/21/2017 13:48 [facility] COMPARISON: No previous studies available for comparison. INDICATIONS : Trauma. Fall. RADIATION DOSE: 26.58 CTDIvol (mGy) MEDICAL HISTORY : Gastroesophageal reflux disease. Deep venous thrombosis. Cardiovascular diseaseHypertension. Diabete s. Renal stones. SURGICAL HISTORY : Coronary artery stent. ENCOUNTER: Initial ACUITY: 1 week PAIN SCALE: 0/10 LOCATION: neck TECHNIQUE: Volumetric scanning of the cervical spine was performed. Multiplanar reconstructions in the sagittal, coronal and oblique axial planes were performed. Using automated exposure control and adjustment o f the mA and/or kV according to patient size, radiation dose was kept as low as reasonably achievable to obtain optimal diagnostic quality images. DICOM format image data is available electronically f or review and comparison. FINDINGS: Sagittal and coronal reformats demonstrate mild straightening of the normal cervical curve. There are severe degenerative changes throughout the disc spaces at all levels. There are moderate degenerativ e changes in the atlantodens joint. No acute fracture of the cervical spine is identified. C2-C3: There is a degenerated disc. There is osteophytic ridging from the vertebral endplates and advanced f acet arthritis bilaterally. There is some mild bony foraminal narrowing on the left. The residual the kulwinder space is adequate. C3-C4: There is a degenerated disc. There is mild osteophytic ridging from the vertebral endplates. There is moderate facet arthritis bilaterally. The residual thecal space is adequate. There is mild bony fora shaun narrowing bilaterally. C4-C5: There is a degenerated disc with extensive osteophytic ridging from the vertebral endplates and moder ate facet arthritis bilaterally. There is moderate bony foraminal narrowing on the right. The foramin a on the left is adequate. The residual thecal space is adequate. C5-C6: There is a degenerated disc. There is osteophytic ridging from the vertebral endplates. There is mild facet arthritis bilaterally. There is mild bony foraminal or I'm bilaterally. The residual thecal sp sharon is adequate. C6-C7: There is a degenerated disc with diffuse osteophytic ridging. There is moderate facet arthritis bilat erally. There is moderate bony foraminal narrowing bilaterally. Residual thecal space is adequate. C7-T1: There is a degenerated disc with osteophytic ridging from the vertebral endplates. There is moderate facet arthritis bilaterally. The residual thecal space and foramina appear adequate. Note is made of bony fragmentation of the posterior spinous process of T1 and T2. This is felt to be secondary to old ligamentous injury. The remainder of the bony mineralization is within normal limits . CONCLUSION: 1. No acute cervical fracture identified. 2. Advanced degenerative changes as above. 3. There is bony fragmentation of the tip of the spinous process of T1 and T2 felt to be secondary to old ligamentous injury. Evangelist Viveros MD on June 21, 2017 at 15:20 Board Certified Radiologist. This report was verified electronically.
[2017-06-21] MEDS ORDERED: oxyCODONE/ACETAMINOPHEN 5 MG/325 MG TAB PO ONE (15:30)
[2017-06-21] MEDS ORDERED: NORC5TAB PO (15:48)
== END 2017-06-21 16:21 | disposition home or self-care (01) ==
LOC: PHEFT 13:10
DX: S29.012A Strain of muscle and tendon of back wall of thorax, initial encounter (principal); W01.0XXA Fall on same level from slipping, tripping and stumbling without subsequent striking against object, initial encounter; K50.90 Crohn's disease, unspecified, without complications; I10 Essential (primary) hypertension; I48.91 Unspecified atrial fibrillation; E78.00 Pure hypercholesterolemia, unspecified; E11.9 Type 2 diabetes mellitus without complications; Z79.01 Long term (current) use of anticoagulants; Z79.84 Long term (current) use of oral hypoglycemic drugs; Z86.718 Personal history of other venous thrombosis and embolism
CPT/HCPCS: 70450; 72125; 72128; 99284